=== PATIENT | female | born 1995 | race Caucasian/White ===

== ENCOUNTER 2017-07-09 10:04 | Emergency (ER) | payer OTHER, SELFPAY ==
[2017-07-09 10:05] VITALS: BP 132/91; PULSE 62; RESP 16; TEMP 37.1; O2SAT 100; BMI 18.5
--- NOTE | 2017-07-09 10:42 | ED.DCSUM_ITS ---
- ER Visit Summary Date of Service: 07/09/17 Chief Complaint: Severe bilateral upper abdominal pain that awoke patient from sleep History of Present Illness: The patient is a 21 F who was brought to the emergency department by her parents because of severe bilateral upper abdominal pain. The pain awoke her from sleep at 03: 00. The pain is a 1 presently. She did complain of nausea without vomiting or diarrhea. She denies constipation. Last bowel movement yesterday and normal. She denies fever, chills night sweats. She denies cough or shortness of breath. She denies chest discomfort. She denies dysuria, frequency, urgency hematuria. There is no history of ureteral or renal lithiasis. Furthermore, there is no family history of either. Last menses mid June approximately June 19, 2017. She denies any skin lesions. She denies bruising easily. She has no intolerance to greasy or fried foods. She did eat chocolate cake at 2200. Maternal grandmother had a cholecystectomy. Physical Examination: Vital signs are marked for slight elevation blood pressure 132/91. She appears in no discomfort. She smiles and laughs during history and physical. Head is atraumatic normocephalic. Pupils equal round reactive. Extra muscle intact. Nares patent. Posterior pharynx without erythema x-ray. Mucosa moist. Neck is supple with no lymphadenopathy. Trach is midline. Heart is regular without murmur, gallop or rub. S1 and S2 are normal. Lungs are clear to auscultation with good movement of air bilaterally. Abdomen is nontender slightly distended and tympanitic with decreased bowel sounds. She has a umbilical piercing without evidence of infection. There is no CVA tenderness noted. There is no evidence of umbilical hernia. There is no inguinal lymphadenopathy. There is no skin lesion or rash noted. Her neuro exam is nonfocal. Test Results: Abdominal series reveals a normal cardiac silhouette, mediastinum and lung parenchyma. Abdominal portion reveals massive gas pattern with a significant amount of fecal stasis right lower quadrant. CBC, hepatic and lipase were negative. Emergency Department Course and Treatment: Since she is distended tympanitic with diminished bowel sounds will obtain an abdominal series to evaluate for ileus etc. Because she had pain that awoke her from sleep will obtain hepatic and lipase to evaluate her discomfort since she had a rich meal at 2200. Treatment Plan: Discharge with parents with the appropriate home-going instructions. Please read discharge note Disposition: Discharged to home in stable condition with parents Impression: Acute abdominal pain secondary to obstipation This note was generated with [employer] ([employer]) dictation software. It may contain incorrect words, spelling, and punctuation that were not noted in review of the chart prior to signing ED Disposition - Plan for ED Patient: Disposition: Home or Assisted Living Chief Complaint: Abd Pain Instructions: ED Constipation Referrals: Cecilia Madrigal DO [Primary Care Provider] - 3-5 Days if not improving Additional Instructions: 1. You must increase the fiber in your diet. 2. Recommend MiraLAX once daily for the next 1 week. 3. Drink 10 ounces of mag citrate. 4 hours later drink a glass of MiraLAX. Continue to drink a glass every hour until you have results.
[2017-07-09 10:56] LABS: Absolute Neutrophil Count 4.9 X10^3/uL (2.0-7.7); Basophil# 0.04 X10^3/uL; Basophil% 0.5 % (0-1); Eosinophil# 0.37 X10^3/uL; Eosinophils% 4.9 % (0-5); Hematocrit 39.9 % (37-47); Lymphocyte % 22.7 % (19-41); Mean Corp Hgb Conc 32.6 g/gl (32-36); Mean Corpuscular Hgb 28.2 pg (27.0-32.0); Mean Corpuscular Volume 86.6 fL (81-99); Mean Platelet Vol. 10.5 fl (6.2-12.0); Monocyte# 0.53 X10^3/uL; Monocyte% 7.1 % (0-10); Neutrophil # 4.85 X10^3/uL (2.7-7.7); Neutrophil % 64.7 % (47-70); Platelet Count 265 K/mm3 (150-450); RBC Distribution Width CV 12.9 % (11.6-14.6); Red Blood Count 4.61 M/mm3 (4.2-5.4); White Blood Count 7.5 K/mm3 (4.4-11.0)
[2017-07-09 10:59] LABS: POSITIVE COUNT NO; POSITIVE DIFFERENTIAL NO; POSITIVE MORPHOLOGY NO
--- NOTE | 2017-07-09 11:05 | RAD_ITS ---
STUDY: X-RAY - ACUTE ABDOMINAL SERIES REASON FOR EXAM: Female, 21 years old. Chest pain. TECHNIQUE: Single view of the chest. Supine, and erect view(s) of the abdomen were obtained. COMPARISON: None. FINDINGS: The lungs are clear and expanded. Normal size heart. Normal mediastinum and red. Normal visualized pulmonary arteries. Normal visualized aortic arch and descending thoracic aorta. There is a moderate amount of colonic fecal material. The soft tissue structures of the abdomen and pelvis are unremarkable. Normal visualized osseous structures. RAD/Acute Abdomen Inc Chest IMPRESSION: Moderate amount of fecal material is seen in the colon. Electronically Signed: Alfonzo Amaya MD at 11:30 EST Tel [phone], Service support ,
[2017-07-09 11:10] LABS: AST(SGOT) 23 U/L (15-37); Alanine Aminotransfer ALT/SGPT 22 U/L (13-56); Albumin, Serum 3.7 g/dL (3.2-5.0); Alkaline Phosphatase 79 U/L (45-117); Lipase 140 U/L (73-393); Protein, Total 7.7 g/dL (6.4-8.2)
[2017-07-09 12:19] VITALS: BP 135/82; PULSE 85; RESP 16; O2SAT 98
[2017-07-09 13:42] VITALS: BP 130/82; PULSE 85; RESP 16; O2SAT 98
== END 2017-07-09 13:43 | disposition home or self-care (01) ==
PROVIDERS: Emergency Provider Emergency Medicine; Family Provider Family Medicine; PCP Family Medicine
DX: K59.00 Constipation, unspecified (principal)
CPT/HCPCS: 74022; 80076; 83690; 85025; 99283; A4216

== ENCOUNTER → 2022-09-27 | Outpatient (CLI) | payer OTHER, SELFPAY ==
[2022-09-30 09:07] LABS: Chlamydia By Nucleic Acid AMP Negative (Negative); Gonococcus By Nucleic Acid AMP Negative (Negative)
[2022-10-13 11:08] LABS: HPV Reflexed? NOT INDICATED
== END | disposition home or self-care (01) ==
LOC: LABSPEC 15:50
PROVIDERS: PCP Family Medicine; Referring Provider Nurse Practitioner Women's Health; Visit Provider Nurse Practitioner Women's Health
DX: Z20.2 Contact with and (suspected) exposure to infections with a predominantly sexual mode of transmission (principal); Z12.4 Encounter for screening for malignant neoplasm of cervix
CPT/HCPCS: 87491; 87591; 88175; G0145